=== PATIENT | female | born 2000 | race Caucasian/White ===

== ENCOUNTER 2023-09-13 11:34 | Emergency (ER) | payer OTHER, SELFPAY ==
[2023-09-13 12:20] VITALS: BP 139/92; PULSE 130; RESP 20; TEMP 36.6; O2SAT 100
--- NOTE | 2023-09-13 14:07 | ED.GENADULT ---
HPI - General Adult General Chief complaint: Headache Stated complaint: migraine Time Seen by Provider: 09/13/23 13:23 History of Present Illness HPI narrative: 22-year-old female presents to the emergency department for evaluation for headache. Patient states that it has been ongoing since Sunday. Patient has tried [id number] medications without significant improvement. Patient reports he does have a history of headaches due to her needing glasses. Patient states that she often does have light sensitivity and nausea with her headaches. Patient states that this headache is located in her frontal sinuses, temporal lobe and radiates to the occipital lobes. Related Data Allergies Allergy/AdvReac Type Severity Reaction Status Date / Time No Known Allergies Allergy Verified 09/13/23 14:23 Review of Systems Review of Systems: All systems reviewed & are unremarkable except as noted in HPI and below Exam Narrative: APPEARANCE: Well appearing, no pain, no distress, well-nourished. HEAD: normocephalic, atraumatic. EYES: PERRLA/EOMI, conjunctivae clear. NOSE: Normal no drainage EARS:TMS clear with good light reflex. THROAT: Pharynx clear, no exudate. NECK: Supple. No adenopathy, no masses. RESPIRATORY: Airway patent, respirations nonlabored. Clear to auscultation bilaterally, no rales, rhonchi, wheezing. CARDIOVASCULAR: Regular rate and rhythm without murmurs rubs or gallops. ABDOMINAL: Soft, nontender, nondistended, normal bowel sounds MUSCULOSKELETAL: Moves all extremities. Strength/ROM intact, No edema, No calf tenderness. NEURO: Grossly intact, cranial nerves intact, negative Romberg, normal forward and backward tandem gait Course Course Emergency Course: Patient did feel improved with treatment patient was discharged to home. Vital Signs Vital signs: Vital Signs Temperature 97.8 F 09/13/23 12:20 Pulse Rate 130 H 09/13/23 12:20 Respiratory Rate 20 09/13/23 12:20 Blood Pressure 139/92 H 09/13/23 12:20 Pulse Oximetry 100 09/13/23 12:20 Oxygen Delivery Room Air 09/13/23 12:20 Temperature 97.8 F 09/13/23 12:20 Pulse Rate 100 09/13/23 15:39 Respiratory Rate 18 09/13/23 15:39 Blood Pressure 125/78 09/13/23 15:39 Pulse Oximetry 100 09/13/23 15:39 Oxygen Delivery Room Air 09/13/23 12:20 Medical Decision Making MDM Narrative Medical decision making narrative: 22-year-old female presenting emergency department for evaluation for headache. Patient did require p.o. Ativan for anxiety related to needle. Patient will be treated with IV Toradol, IV fluids, IV Compazine and IV Benadryl. On re-evaluation patient states he does feel significantly improved. Patient was comfortable the plan for discharge and close follow-up. Patient and family were updated on the importance of close follow-up and also keeping a headache diary. Differential Diagnosis Differential Diagnosis: Migraine, headache, sinus infection Vital Signs Vital Signs: Vital Signs Temperature 97.8 F 09/13/23 12:20 Pulse Rate 130 H 09/13/23 12:20 Respiratory Rate 20 09/13/23 12:20 Blood Pressure 139/92 H 09/13/23 12:20 Pulse Oximetry 100 09/13/23 12:20 Oxygen Delivery Room Air 09/13/23 12:20 Temperature 97.8 F 09/13/23 12:20 Pulse Rate 100 09/13/23 15:39 Respiratory Rate 18 09/13/23 15:39 Blood Pressure 125/78 09/13/23 15:39 Pulse Oximetry 100 09/13/23 15:39 Oxygen Delivery Room Air 09/13/23 12:20 Discharge Plan Discharge Clinical Impression: Headache Patient Disposition: Home, Self-Care Condition: Stable Instructions: Antibiotic Form, Acute Headache (ED) Additional Instructions: Have close follow-up with your primary care physician. Keep a headache/migraine diary. If you have any worsening symptoms then please call or return to the emergency department Follow-up/Referrals: Kathrine Douglass DO [Primary Care Provider] -
[2023-09-13] MEDS: LORazepam (*CRX) 1 MG TABLET PO (14:25)
[2023-09-13] MEDS: SODIUM CHLORIDE 0.9% IV 1,000 ML 999 ML IV CONT (14:56)
[2023-09-13] MEDS: PROCHLORPERAZINE EDISYLATE 10 MG/2 ML VIAL IV PUSH (14:57)
[2023-09-13] MEDS: KETOROLAC 15 MG/ML VIAL (*BKC) IV PUSH (14:57)
[2023-09-13] MEDS: diphenhydrAMINE HCl INJ 50 MG/ML VIAL 25 MG IV PUSH (14:57)
[2023-09-13 15:39] VITALS: BP 125/78; PULSE 100; RESP 18; O2SAT 100
== END 2023-09-13 15:46 | disposition home or self-care (01) ==
PROVIDERS: Emergency Provider Emergency Medicine; PCP Family Medicine
DX: R51.9 Headache, unspecified (principal)
CPT/HCPCS: 96361; 96374; 96375; 99284; A9270; J0780; J1200; J1885; J7030

== ENCOUNTER 2023-11-24 09:22 | Outpatient (CLI) | payer OTHER, SELFPAY ==
[2023-11-24 10:05] LABS: Hematocrit 41.6 % (37.0-47.0); Hemoglobin 13.6 g/dL (12.0-15.0); Mean Corpuscular HGB Conc 32.7 g/dl (32-36); Mean Corpuscular Hemoglobin 28.2 pg (26-34); Mean Corpuscular Volume 86.1 fl (80-100); Platelet Count Result 377 k/mm3 (150-375); Red Blood Count 4.83 M/mm3 (4.2-5.4); Red Cell Distribution Width 13.2 % (11.5-14.5); White Blood Count 6.8 K/mm3 (4.5-10.0)
[2023-11-24 10:26] LABS: Alanine Aminotransferase 24 U/L (6-35); Albumin Level 4.6 g/dL (3.5-5.1); Alkaline Phosphatase 67 U/L (38-126); Anion Gap 12 mmol/L (4-12); Aspartate Amino Transferase 28 U/L (14-36); Bilirubin,Total 0.4 mg/dL (0.2-1.3); Blood Urea Nitrogen 9 mg/dL (7-17); Calcium 9.1 mg/dL (8.4-10.2); Carbon Dioxide 25 mmol/L (22-30); Chloride 99 mmol/L (98-107); Cholesterol 199 mg/dL (0-200); Estimated Glomerular Filt Rate > 60; Glucose 95 mg/dL (65-110); HDL Direct 71 mg/dL; Sodium 136 mmol/L (137-145); Triglycerides 104 mg/dL (<150)
[2023-11-24 10:37] LABS: LDL Cholesterol Direct 87 mg/dL
[2023-11-24 10:53] LABS: Thyroid Stimulating Hormone 0.725 uIU/mL (0.465-4.680)
== END 2023-11-24 09:23 | disposition home or self-care (01) ==
LOC: ANHLAB 09:25
PROVIDERS: PCP Family Medicine; Visit Provider Family Medicine
DX: K58.9 Irritable bowel syndrome, unspecified (principal); E66.3 Overweight; F41.9 Anxiety disorder, unspecified; K21.9 Gastro-esophageal reflux disease without esophagitis; Z79.899 Other long term (current) drug therapy
CPT/HCPCS: 36415; 80053; 80061; 84443; 85027